=== PATIENT | male | born 1985 | race Caucasian/White ===

== ENCOUNTER 2019-06-25 23:38 | Emergency (ER) | payer OTHER ==
[2019-06-26 00:04] VITALS: TEMP 98; BMI 28.0
--- NOTE | 2019-06-26 01:46 | PDOC ---
Attending Attestation - Resident Resident Name: MauricequentinSy - ED Attending Attestation I have performed the following: I have examined & evaluated the patient, The case was reviewed & discussed with the resident, I agree w/resident's findings & plan - HPI HPI: 06/26/19 02:40 see resident hpi - Physicial Exam PE: 06/26/19 02:40 see resident exam - Medical Decision Making 06/26/19 02:40 34-year-old male with intermittent left-sided reproducible chest pain with some radiation into the upper arm Chest x-ray shows no infiltrate or significant acute abnormality EKG is unremarkable Plan for troponin x2 and to DC with outpatient follow-up PERC score is negative
[2019-06-26 02:12] LABS: BASO % 0.5 % (0-2.0); EOS % 1.5 % (0-4.5); HEMOGLOBIN 14.2 GM/dL (11.7-16.9); LYMPH % 21.9 % (8-40); MCH 29.8 pg (25.7-33.7); MEAN CELL VOLUME 90.5 fl (80-96); MONO % 4.8 % (3.8-10.2); NEUT % 71.3 % (42.8-82.8); PLATELET COUNT 293 K/MM3 (134-434); RBC 4.76 M/mm3 (4.00-5.60); RDW 13.4 % (11.9-15.9); WHITE BLOOD COUNT 11.3 K/mm3 (4.0-10.0)
[2019-06-26 02:25] LABS: INR 1.09 (0.83-1.09); PROTHROMBIN TIME (PATIENT) 12.9 SEC (9.7-13.0)
[2019-06-26 02:28] LABS: ACTIVATED PTT 39.6 SECONDS (25.2-36.5)
--- NOTE | 2019-06-26 02:38 | PDOC ---
History of Present Illness - General Chief Complaint: Chest Pain Stated Complaint: CHEST PAIN Time Seen by Provider: 06/26/19 01:31 History Source: Patient Exam Limitations: No Limitations - History of Present Illness Initial Comments: 06/26/19 02:37 34-year-old male with a past medical history, does not follow up with a PMD, and presents with complaints of chest pain. Patient states that he has an onset left Eleni sternal chest pain is associated with left arm numbness I start around 3 oclock in the afternoon, approximately 12 hours ago. The patient states he was watching TV when this happened. The pain is not associated the shortness of breath, nausea, vomiting, diaphoresis, lightheadedness, palpitations. Patient denies any acute complaints. Patient states when he pushes on the part of his chest that hurts, the pain is reproducible. Past History - Past Medical History Allergies/Adverse Reactions: Allergies Allergy/AdvReac Type Severity Reaction Status Date / Time No Known Allergies Allergy Verified 06/25/19 23:56 Home Medications: Ambulatory Orders NK [No Known Home Medication] 06/26/19 COPD: No - Psycho Social/Smoking Cessation Hx Smoking History: Never smoked Have you smoked in the past 12 months: No Information on smoking cessation initiated: No Hx Alcohol Use: No Drug/Substance Use Hx: No Review of Systems - Review of Systems Able to Perform ROS?: Yes Comments:: 06/26/19 02:37 GENERAL/CONSTITUTIONAL: No fever or chills. No weakness. HEAD, EYES, EARS, NOSE AND THROAT: No change in vision. No ear pain or discharge. No sore throat. CARDIOVASCULAR: + for CP. No palpitations, or lightheadedness. RESPIRATORY: No cough, wheezing, shortness of breath, or hemoptysis. GASTROINTESTINAL: No abdominal pain, nausea, vomiting, diarrhea, or constipation. GENITOURINARY: No dysuria, frequency, hematuria, or change in urination. MUSCULOSKELETAL: No joint or muscle swelling or pain. No neck or back pain. SKIN: No rash or lesions. NEUROLOGIC: No headache, numbness, tingling, focal weakness, loss of consciousness, or change in strength/sensation. Is the patient limited Togolese proficient: No *Physical Exam - Vital Signs Last Vital Signs Temp Pulse Resp BP Pulse Ox 98.0 F 73 17 118/74 100 06/25/19 23:50 06/25/19 23:50 06/25/19 23:50 06/25/19 23:50 06/25/19 23:50 - Physical Exam 06/26/19 02:38 GENERAL: Well developed, well nourished. Awake and alert. No acute distress. HEENT: Normocephalic, atraumatic. Hearing grossly normal. Moist mucous membranes. PERRLA, EOMI. No conjunctival pallor. Sclera are non-icteric. NECK: Supple. Full ROM. No JVD. CARDIOVASCULAR: Regular rate and rhythm. No murmurs, rubs, or gallops. PULMONARY: No evidence of respiratory distress. Lungs clear to auscultation bilaterally. No wheezing, rales, or rhonchi. ABDOMINAL: Soft. Non-tender. Non-distended. No rebound or guarding. GENITOURINARY: No CVA tenderness bilaterally. MUSCULOSKELETAL: Normal range of motion at all joints. No bony deformities or tenderness. TTP on L parasternal chest. EXTREMITIES: No cyanosis. No clubbing. No edema. No calf tenderness or swelling. SKIN: Warm and dry. Normal capillary refill. No rashes. No jaundice. NEUROLOGICAL: Alert, awake, appropriate. Cranial nerves 2-12 grossly intact. No deficits to light touch and temperature in face, upper extremities and lower extremities. 5/5 strength in deltoids, biceps, triceps, quadriceps, hamstrings, and gastrocnemius. Normal speech. Gait is normal without ataxia. PSYCHIATRIC: Cooperative. Good eye contact. Appropriate mood and affect. ED Treatment Course - LABORATORY CBC & Chemistry Diagram: 06/26/19 02:00 06/26/19 02:00 - ADDITIONAL ORDERS Additional order review: Laboratory Results 06/26/19 02:00 PT with INR 12.90 INR 1.09 PTT (Actin FS) 39.6 H 06/26/19 02:00 RBC 4.76 MCV 90.5 MCHC 33.0 RDW 13.4 MPV 8.0 Neutrophils % 71.3 Lymphocytes % 21.9 Monocytes % 4.8 Eosinophils % 1.5 Basophils % 0.5 - RADIOLOGY Radiology Studies Ordered: Category Date Time Status CHEST PA & LAT [RAD] Stat Radiology 06/26/19 01:34 Taken Medical Decision Making - Medical Decision Making 06/26/19 02:37 34M with a PMH of HTN who presents with chest pain is reproducible, associated left arm numbness. Due to inability to recall patients medical history/no follow up PMD, will obtain two sets of troponins and chest x-ray. Preliminary rid of chest x-ray is negative except for elevated right josy diaphragm. Patient does admit to drinking 2 to 4 beers a day. Patient well appearing otherwise. Will give pain medication. Pending labs including troponin. Pt PERC negative. 06/26/19 03:09 First troponin negative. Pending second troponin. 06/26/19 06:41 Repeat trop negative. Will d/c with PCP f/u. Discharge - Discharge Information Problems reviewed: Yes Clinical Impression/Diagnosis: Atypical chest pain Condition: Good Disposition: HOME - Admission No - Follow up/Referral Referrals: [facility] [place] [Provider Group] - Patient Discharge Instructions Patient Printed Discharge Instructions: DI for Atypical Chest Pain Additional Instructions: Your ER visit is not complete until your follow up with your primary care physician. Please follow up with your primary care physician in 1-2 days. Please return to the ER if you have any signs or symptoms of chest pain, shortness of breath, uncontrollable fever, chills, nausea, vomiting, numbness, tingling, or weakness in any part of your body, changes in vision, or slurred speech. Please return to the ER if symptoms persist, worsen, or new symptoms arise. Cisse visita a la adrian de emergencias no est completa hasta cisse seguimiento con cisse mdico de atencin primaria. Manda un seguimiento con cisse mdico de atencin primaria en 1-2 villeda. Regrese a la adrian de emergencias si tiene signos o sntomas de dolor en el pecho, falta de aliento, fiebre incontrolable, escalofros, nuseas, vmitos, entumecimiento, hormigueo o debilidad en alguna parte de cisse cuerpo, cambios en la visin o dificultad para hablar. Por favor tome raffy medicamentos marifer se los recetaron. Regrese a la adrian de emergencias si los sntomas persisten, empeoran o surgen nuevos sntomas. - Post Discharge Activity
[2019-06-26] MEDS ORDERED: KETOROLAC TROMETHAMINE 30 MG/1 ML VIAL IVPUSH ONE (02:41)
[2019-06-26] MEDS ORDERED: KETOROLAC TROMETHAMINE 30 MG/1 ML VIAL ONE (02:43)
[2019-06-26 03:01] LABS: ALBUMIN 4.1 g/dl (3.4-5.0); ALK PHOS 97 U/L (45-117); ANION GAP 7 MMOL/L (8-16); BILIRUBIN,TOTAL 0.4 mg/dL (0.2-1); BLOOD UREA NITROGEN 12.2 mg/dL (7-18); CALCIUM 8.9 mg/dL (8.5-10.1); CHLORIDE 105 mmol/L (98-107); CO2 26 mmol/L (21-32); CREATININE 0.7 mg/dL (0.55-1.3); GLUCOSE,RANDOM 105 mg/dL (74-106); MAGNESIUM 2.2 mg/dL (1.8-2.4); POTASSIUM 4.1 mmol/L (3.5-5.1); SGOT/AST 23 U/L (15-37); SGPT/ALT 37 U/L (13-61); SODIUM 139 mmol/L (136-145)
[2019-06-26 03:24] VITALS: BP 104/69; PULSE 64
--- NOTE | 2019-06-26 10:27 | EKG ---
Test Reason : Blood Pressure : / mmHG Vent. Rate : 079 BPM Atrial Rate : 079 BPM P-R Int : 144 ms QRS Dur : 096 ms QT Int : 398 ms P-R-T Axes : 045 060 025 degrees QTc Int : 456 ms NORMAL SINUS RHYTHM NORMAL ECG NO PREVIOUS ECGS AVAILABLE Confirmed by ALEJO TAPIA MD ([id number]) on 06/26/2019 10:26:29 AM Referred By: Confirmed By:ALEJO TAPIA MD
== END 2019-06-26 06:49 | disposition home or self-care (01) ==
LOC: JER 23:38
PROC: 3E0333Z Introduction of Anti-inflammatory into Peripheral Vein, Percutaneous Approach (ICD-10-PCS; principal; 2019-06-25)
DX: R07.89 Other chest pain (principal)
CPT/HCPCS: 36415; 71046-TC-FY; 80053; 82550; 83735; 84484; 85025; 85610; 85730; 93005; 93010; 99285-25